=== PATIENT | male | born 1985 | race Asian ===

== ENCOUNTER 2023-12-04 18:35 | Emergency (ER) | payer MEDICAID ==
[~2023-12-04] VITALS: Ht 154.9 cm; Wt 77.3 kg
[2023-12-04] MEDS ORDERED: METF-1211 PO ×2 (18:44→20:56)
[2023-12-04] MEDS ORDERED: ATOR10TA PO (18:44)
[2023-12-04 19:02] LABS: COVID AG,FIA SOURCE NASAL SWAB
[2023-12-04 19:46] LABS: RAPID GROUP A STREP NEGATIVE (NEGATIVE)
[2023-12-04 19:51] LABS: INFLUENZA TYPE A NEGATIVE FOR TYPE A (NEGATIVE); INFLUENZA TYPE B NEGATIVE FOR TYPE B (NEGATIVE); SARS-COV2 (COVID) ANTIGEN,FIA Negative (Negative)
[2023-12-04 19:58] VITALS: BP 148/90; PULSE 100; RESP 18; TEMP 98
[2023-12-04] MEDS ORDERED: ACET-66 PO (20:56)
[2023-12-04] MEDS: INSULIN REGULAR, HUMAN 100 UNITS/ML SQ ONE (20:57)
[2023-12-04 21:06] LABS: GLUCOMETER DEV NAME(LOC) ER.7; GLUCOSE,POINT OF CARE 438 MG/DL (70-110)
== END 2023-12-04 21:04 | disposition home or self-care (01) ==
LOC: EMS 18:35
DX: E11.65 Type 2 diabetes mellitus with hyperglycemia (principal); R05.9 Cough, unspecified; R09.89 Other specified symptoms and signs involving the circulatory and respiratory systems; J02.9 Acute pharyngitis, unspecified; F17.210 Nicotine dependence, cigarettes, uncomplicated; Z91.118 Patient's noncompliance with dietary regimen for other reason; Z20.822 Contact with and (suspected) exposure to COVID-19
CPT/HCPCS: 99283; 87426; 82962; 87430; 87804; 96372; J1815